=== PATIENT | female | born 1940 | race Caucasian/White ===

== ENCOUNTER 2019-08-15 23:14 | Emergency (ER) | payer MEDICARE, OTHER ==
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
[2019-08-16 00:38] VITALS: PULSE 82
[2019-08-16 01:15] VITALS: BP 161/79
--- NOTE | 2019-08-16 09:48 | XRAY ---
Indication: Pneumonia. Left rib fractures. Comparison: None Portable chest demonstrates mild left base infiltrate/atelectasis/effusion, tiny right effusion, and tiny peripheral right lung calcified granuloma. Heart is not enlarged. Bony thorax demonstrates osteopenia and nondisplaced left 6/7 rib fractures. Impression: 1. Left base infiltrate/atelectasis/effusion that may or may not be related to left rib fractures. No pneumothorax. 2. Incidental tiny right effusion and right lung calcified granuloma.
[2019-08-16 12:14] VITALS: O2SAT 88
== END 2019-08-16 01:30 | disposition home or self-care (01) ==
LOC: ED 23:14
DX: M25.512 Pain in left shoulder (principal); S22.42XS Multiple fractures of ribs, left side, sequela; V49.9XXD Car occupant (driver) (passenger) injured in unspecified traffic accident, subsequent encounter; I10 Essential (primary) hypertension; Z79.899 Other long term (current) drug therapy
CPT/HCPCS: 71045; 99284

== ENCOUNTER 2023-08-03 16:42 | Emergency (ER) | payer MEDICARE, OTHER ==
[2023-08-03 17:22] VITALS: BP 166/81; RESP 18; TEMP 98
--- NOTE | 2023-08-03 18:41 | ERPHSYRPT ---
- History of Present Illness Time Seen by Provider: 08/03/23 17:00 Source: patient Exam Limitations: no limitations Patient Subjective Stated Complaint: Patient fell just before 4pm today. 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 Patient did not hit her head. States she fell onto her buttocks. Now c/o pain in left hip. Triage Nursing Assessment: Patient brought back in w/c. Patient able to transfer self from chair to bed. Patient able to bend at knees per self to draw legs up and remove pants. Patient indicates she is only in pain when walking or with certain movements. No bruising noted to area of pain at this time. Physician History: Patient is a 82-year-old female presents to our ED for evaluation of pain to her left hip. 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 Patient now has pain at her left hip pain worse with weightbearing. Pain improved with rest. No associated BHT or LOC. The fall was not associated with any neuro cardiovascular symptomology. No chest pain or shortness of breath. No nausea vomiting or diaphoresis. Patient otherwise feels well. She voices no other complaints or concerns at this time. Portions of this note were created with voice recognition technology. There may be grammatical, spelling, punctuation or sound alike errors Method of Injury: fell Occurred: just prior to arrival (Patient fell at approximately 4 PM) Quality: intermittent Severity of Pain-Max: moderate Severity of Pain-Current: mild Lower Extremities Pain: hip: left Modifying Factors: Improves With: movement (Certain movements reproduce pain. Weightbearing increases pain) Associated Symptoms: none Allergies/Adverse Reactions: penicillin G Allergy (Mild, Verified 08/03/23 17:03) Rash swell at the inj. site. lubiprostone [From Amitiza] Adverse Reaction (Verified 08/03/23 17:03) Swelling of Feet Home Medications: Citalopram Hydrobromide 20 mg* [ceLEXa 20 MG] 1 tab PO DAILY 05/04/16 [History] diazePAM [Valium] 1 tab PO DAILY PRN PRN 05/04/16 [History] Mv-Min/Folic/K1/Lycopen/Lutein [Centrum Adults 50 Plus Minis] 1 tab PO DAILY 08/03/23 [History] Trazodone HCl 1 tab PO HS 08/03/23 [History] Hx Tetanus, Diphtheria Vaccination/Date Given: Yes (jul 2019) Hx Influenza Vaccination/Date Given: Yes Hx Pneumococcal Vaccination/Date Given: Yes Immunizations Up to Date: Yes Travel Risk - International Travel Have you traveled outside of the country in past 3 weeks: No - Coronavirus Screening Are you exhibiting any of the following symptoms?: No Close contact with a COVID-19 positive Pt in past 14-21 Days: No - Vaccine Status Have you recieved a Covid-19 vaccination: Yes Draw Tender: Posiq - Vaccination Dates Date of 2cond Vaccination (if applicable): ? - Review of Systems Constitutional: No Symptoms, No Fever, No Chills Eyes: No Symptoms Ears, Nose, & Throat: No Symptoms Respiratory: No Symptoms, No Cough, No Dyspnea Cardiac: No Symptoms, No Chest Pain, No Edema, No Syncope Abdominal/Gastrointestinal: No Symptoms, No Abdominal Pain, No Nausea, No Vomiting, No Diarrhea Genitourinary Symptoms: No Symptoms, No Dysuria Musculoskeletal: No Symptoms, No Back Pain, No Neck Pain Skin: No Symptoms, No Rash Neurological: No Symptoms, No Dizziness, No Focal Weakness, No Sensory Changes Psychological: No Symptoms Endocrine: No Symptoms Hematologic/Lymphatic: No Symptoms Immunological/Allergic: No Symptoms All Other Systems: Reviewed and Negative - Past Medical History Pertinent Past Medical History: Yes Neurological History: No Pertinent History, Migraines ENT History: Cataracts, Glaucoma Cardiac History: Hypertension Respiratory History: No Pertinent History Endocrine Medical History: No Pertinent History Musculoskeletal History: No Pertinent History GI Medical History: GERD History: No Pertinent History Psycho-Social History: Anxiety, Depression Female Reproductive Disorders: No Pertinent History Other Medical History: BP MED, GENERIC CELEXA, TAKES ACETOMENIPHINE OCCASSIONALLY BUT SHE DOESN'T TAKE ANYTHING CONSISTENTLY. - Past Surgical History Past Surgical History: Yes Neuro Surgical History: No Pertinent History Cardiac: Angioplasty Respiratory: No Pertinent History Gastrointestinal: No Pertinent History Genitourinary: No Pertinent History Musculoskeletal: Orthopedic Surgery, Other Female Surgical History: Hysterectomy Other Surgical History: R shoulder repair, septumplasty of nose, torn retina repair - Social History Smoking Status: Never smoker Exposure to second hand smoke: No Drug Use: none Patient Lives Alone: Yes - Nursing Vital Signs Nursing Vital Signs: Initial Vital Signs Temperature 98 F 08/03/23 16:42 Pulse Rate 86 08/03/23 16:42 Respiratory Rate 18 08/03/23 16:42 Blood Pressure 166/81 08/03/23 16:42 O2 Sat by Pulse Oximetry 94 L 08/03/23 16:42 Pain Scale Pain Intensity 8 - Physical Exam General Appearance: no apparent distress, alert Eyes, Ears, Nose, Throat Exam: normal ENT inspection, TMs normal, pharynx normal, moist mucous membranes Neck Exam: non-tender, supple Cardiovascular/Respiratory Exam: chest non-tender, normal breath sounds, regular rate/rhythm, no respiratory distress Gastrointestinal/Abdominal Exam: non-tender, guarding Back Exam: normal inspection, normal range of motion, No vertebral tenderness Hips Exam: left: non-tender, pain, other (The involved left lower extremity is neurovascular intact distally. Compartments are soft cap refill less than 2 seconds.) Legs Exam: bilateral leg: non-tender, normal inspection, normal range of motion, no evidence of injury Knees Exam: bilateral knee: non-tender, normal inspection, normal range of motion, no evidence of injury Ankle Exam: bilateral ankle: non-tender, normal inspection, normal range of motion, no evidence of injury Foot Exam: bilateral foot: non-tender, normal inspection, normal range of motion, no evidence of injury Neuro/Tendon Exam: normal sensation, normal motor functions Mental Status Exam: alert, oriented x 3, cooperative Skin Exam: normal color, warm, dry SpO2 Interpretation: normal SpO2: 94 O2 Delivery: Room Air - Course Nursing assessment & vital signs reviewed: Yes - CT Exams Lower Extremity CT Interpretation: Tele-radiologist Report (New incompletely visualized left hip prosthesis and fatty left inguinal hernia. Stable osteopenia, right hip DJD and moderate fecal stasis. No acute findings) Ordered Tests: Active Orders 24 hr Category Date Time Status PELVIS WITHOUT CONTRAST [CT] Stat Exams 08/03/23 17:12 Taken - Progress Progress: improved Progress Note: 82-year-old female presents to our ED for evaluation of left hip pain after a fall. Physical exam reveals some tenderness to motion of the left hip. Otherwise left lower extremity/involved lower extremities neurovascular intact distally. Compartments are soft. Cap refill less than [address] scan negative for fracture dislocation. Chronic findings observed. Patient received Toradol IM for pain control. We provided patient with a pickup walker for home. Patient will follow-up with her primary care doctor within 48 hours for reevaluation. She voices no other complaints or concerns at this time. Portions of this note were created with voice recognition technology. There may be grammatical, spelling, punctuation or sound alike errors Complexity of problems addressed is moderate acute complicated Complexity of data reviewed and analyzed is moderate. Test ordered test reviewed. Results analyzed and correlated clinically. Risk of complication and or risk of morbidity/mortality of patient management is moderate. Patient received a pickup walker for home. IM Toradol pain medication administered. Vital stable. Plan of care established for shared decision making. No social determinants of health present impede follow-up. Time spent to discharge patient approximately 15 minutes. Portions of this note were created with voice recognition technology. There may be grammatical, spelling, punctuation or sound alike errors 08/03/23 18:56 Counseled pt/family regarding: lab results, diagnosis, need for follow-up, rad results - Departure Departure Disposition: Home Clinical Impression: Fall, Left hip pain, Fatty left inguinal hernia, Osteopenia, Degenerative joint disease of right hip, Fecal stasis Condition: Stable Critical Care Time: No Referrals: SILKE WOOD MD [Primary Care Provider] - Follow up/PCP as directed Additional Instructions: Discharge/Care Plan JUAN MEADE was seen on 08/03/23 in the Emergency Room. The patient was counseled regarding Diagnosis,Lab results, Imaging studies, need for follow up and when to return to the Emergency Room. Prescriptions given: Discharge Note I have spoken with the patient and/or caregivers. I have explained the patient's condition, diagnosis and treatment plan based on the information available to me at this time. I have answered the patient's and/or caregiver's questions and addressed any concerns. The patient and/or caregivers have as good understanding of the patient's diagnosis, condition and treatment plan as can be expected at this point. The vital signs have been stable. The patient's condition is stable and appropriate for discharge from the emergency department. The patient will pursue further outpatient evaluation with the primary care physician or other designated or consulting physician as outlined in the discharge instructions. The patient and/or caregivers are agreeable to this plan of care and follow-up instructions have been explained in detail. The patient and/or caregivers have received these instruction. The patient/and or caregivers are aware that any significant change in condition or worsening of symptoms should prompt an immediate return to this or the closest emergency department or call 911.
[2023-08-03] MEDS: TORAdol 30 mg Injection IM ONE (19:00)
[2023-08-03] MEDS ORDERED: TORAdol 30 mg Injection ONE (19:06)
[2023-08-03 19:12] VITALS: PULSE 80; O2SAT 96
--- NOTE | 2023-08-04 08:36 | XRAY ---
Indication: Left hip pain following fall. Multiple contiguous axial images obtained through the pelvis with special attention to the osseous structures. Sagittal and coronal reformatted images obtained. Comparison: November 29, 2013 There has been interval left hip total arthroplasty with intact bipolar prosthesis. Osseous structures demineralized consistent with patient's age. No acute fracture, dislocation, or suspicious bony lesions. Progressive worsening moderate right hip degenerative arthropathy and mild lower lumbar degenerative spondylosis. Visualized noncontrasted soft tissues demonstrates new small fatty left inguinal hernia. Visualized pelvic contents again demonstrates moderate scattered colonic fecal debris and aortoiliac calcifications. No suspicious solid/cystic mass or abnormal fluid collection. Impression: 1. Negative acute fracture/dislocation. 2. Again incidental moderate colonic fecal stasis. 3. Chronic findings including intact left total hip arthroplasty, osteopenia, right hip degenerative arthropathy, lower lumbar degenerative spondylosis, fatty left inguinal hernia, and arteriosclerotic disease.
== END 2023-08-03 19:19 | disposition home or self-care (01) ==
LOC: ED 16:42
DX: M25.552 Pain in left hip (principal); W01.0XXA Fall on same level from slipping, tripping and stumbling without subsequent striking against object, initial encounter; K40.90 Unilateral inguinal hernia, without obstruction or gangrene, not specified as recurrent; M85.80 Other specified disorders of bone density and structure, unspecified site; M16.11 Unilateral primary osteoarthritis, right hip; K59.89 Other specified functional intestinal disorders; I10 Essential (primary) hypertension; Z79.899 Other long term (current) drug therapy
CPT/HCPCS: 72192; 96372; 99283; J1885

== ENCOUNTER 2023-08-06 09:48 | Emergency (ER) | payer MEDICARE, OTHER ==
[2023-08-06 10:23] VITALS: TEMP 97.6
[2023-08-06] MEDS ORDERED: TORAdol 30 mg Injection IV ONE (10:25)
[2023-08-06 10:41] LABS: Absolute Neutrophil Ct (ANC) 6.51 x10^3/uL (1.4-6.9); BASOPHIL % 0.8 % (0.0-0.4); Basophil (Absolute #) 0.07 x10^3/uL (0-0.4); Eosinophil % 7.9 % (0.00-5.0); Eosinophil (Absolute #) 0.72 x10^3/uL (0-0.5); Hematocrit 41.7 % (35-47); Hemoglobin 13.8 g/dL (12.0-16.0); IMMATURE GRAN # 0.04 x10^3u/L (0.00-0.03); IMMATURE GRAN % 0.4 % (0.00-0.4); Lymphocyte (Absolute #) 1.07 x10^3/uL (1.0-4.6); Lymphocytes % 11.7 % (24.0-44.0); Mean Cell Volume 95.4 fL (78-100); Mean Corpuscular Hemoglobin 31.6 pg (26-32); Mean Corpuscular Hgb Concent. 33.1 g/dL (32-36); Mean Platelet Volume 10.1 fL (7.5-11.0); Monocyte (Absolute #) 0.76 x10^3/uL (0.0-1.3); Monocytes % 8.3 % (0.0-12.0); Neutrophil % 70.9 % (36.0-66.0); Platelet Count 220 x10^3/uL (150-450); Red Blood Count 4.37 x10^6/uL (4.1-5.4); Red Cell Distribution Width 12.4 % (11.5-14.0); White Blood Count 9.2 x10^3/uL (4.0-10.5)
[2023-08-06] MEDS ORDERED: TORAdol 30 mg Injection ONE (10:47)
[2023-08-06 10:56] LABS: ALBUMIN 4.1 g/dL (3.5-5.0); ANION GAP 12.3 MEQ/L (5-15); BILIRUBIN,TOTAL 0.9 mg/dL (0.2-1.3); Calcium 9.2 mg/dL (8.4-10.2); Creatinine 1 0.73 mg/dL (0.52-1.04); EST GLOMERULAR FILTRATION RATE 82.6 ML/MIN; Potassium 3.9 mmol/L (3.5-5.1); Total Protein 7.3 g/dL (6.3-8.2)
--- NOTE | 2023-08-06 11:30 | ERPHSYRPT ---
- History of Present Illness Historian: patient Exam Limitations: no limitations Patient Subjective Stated Complaint: pt states that she was here a couple days ago for a fall to the left side and she had scans done and she stated that Dr. Diego wasn't listening to her that she was hurting in the left lower quadrant low in the pubis, states that she has a hernia and the pain is excrutiating Triage Nursing Assessment: Pt was brought to the ER room via a wheelchair, vitals wnl, rates pain as 8.5/10, pulses normal, skin n/w/d, bowel sounds heard in all 4 quadrants, very verbal and upset Physician History: Patient is an 82-year-old female who complains of left lower quadrant pain x3 days since she fell in charge. Patient was seen in the ER on the day she fell with a negative work-up. Pain is 8.5 out of 10 and worse with movement . She attributes the pain to a hernia which she has had in the past. Patient denies nausea, vomiting, diarrhea, melena, hematochezia, dysuria, and hematuria. She has not taken any pain meds at home. CT of pelvis was done on on 08/03 which was negative for fracture, demonstrating only fecal stasis and left hip prosthesis. She has no other complaints at this time. Timing/Duration: other (08/03/2023) Activities at Onset: other (Fall) Quality: other (Muscle strain) Abdominal Pain Onset Location: LLQ Pain Radiation: no radiation Severity of Pain-Max: severe Severity of Pain-Current: severe Modifying Factors: Improves With: movement (Pain worse with movement) Associated Symptoms: denies symptoms Previous symptoms: no prior history Allergies/Adverse Reactions: penicillin G Allergy (Mild, Verified 08/06/23 10:23) Rash swell at the inj. site. lubiprostone [From Amitiza] Adverse Reaction (Verified 08/06/23 10:23) Swelling of Feet Home Medications: Citalopram Hydrobromide 20 mg* [ceLEXa 20 MG] 1 tab PO DAILY 05/04/16 [History] diazePAM [Valium] 1 tab PO DAILY PRN PRN 05/04/16 [History] Mv-Min/Folic/K1/Lycopen/Lutein [Centrum Adults 50 Plus Minis] 1 tab PO DAILY 08/03/23 [History] Trazodone HCl 1 tab PO HS 08/03/23 [History] Hx Tetanus, Diphtheria Vaccination/Date Given: Yes (jul 2019) Hx Influenza Vaccination/Date Given: Yes Hx Pneumococcal Vaccination/Date Given: Yes Travel Risk - International Travel Have you traveled outside of the country in past 3 weeks: No - Coronavirus Screening Are you exhibiting any of the following symptoms?: No Close contact with a COVID-19 positive Pt in past 14-21 Days: No - Vaccine Status Have you recieved a Covid-19 vaccination: Yes Temperer: Co-Work - Vaccination Dates Date of 2cond Vaccination (if applicable): ? - Review of Systems Constitutional: No Symptoms Eyes: No Symptoms Ears, Nose, & Throat: No Symptoms Respiratory: No Symptoms Cardiac: No Symptoms Abdominal/Gastrointestinal: No Symptoms, Abdominal Pain Genitourinary Symptoms: No Symptoms Musculoskeletal: No Symptoms Skin: No Symptoms Neurological: No Symptoms Psychological: No Symptoms Endocrine: No Symptoms Hematologic/Lymphatic: No Symptoms Immunological/Allergic: No Symptoms - Past Medical History Pertinent Past Medical History: Yes Neurological History: No Pertinent History, Migraines ENT History: Cataracts, Glaucoma Cardiac History: Hypertension Respiratory History: No Pertinent History Endocrine Medical History: No Pertinent History Musculoskeletal History: No Pertinent History GI Medical History: GERD History: No Pertinent History Psycho-Social History: Anxiety, Depression Female Reproductive Disorders: No Pertinent History Other Medical History: . - Past Surgical History Past Surgical History: Yes Neuro Surgical History: No Pertinent History Cardiac: Angioplasty Respiratory: No Pertinent History Gastrointestinal: No Pertinent History Genitourinary: No Pertinent History Musculoskeletal: Orthopedic Surgery, Other Female Surgical History: Hysterectomy Other Surgical History: R shoulder repair, septumplasty of nose, torn retina repair - Social History Smoking Status: Never smoker Exposure to second hand smoke: No Drug Use: none Patient Lives Alone: Yes - Nursing Vital Signs Nursing Vital Signs: Initial Vital Signs Temperature 97.6 F 08/06/23 10:08 Pulse Rate 92 H 08/06/23 10:08 Blood Pressure 134/68 08/06/23 10:08 O2 Sat by Pulse Oximetry 94 L 08/06/23 10:08 Pain Scale Pain Intensity 8 Normal per age. - Physical Exam General Appearance: no apparent distress (Patient in pain but no apparent distress) Eye Exam: PERRL/EOMI, eyes nml inspection Ears, Nose, Throat Exam: normal ENT inspection, TMs normal, pharynx normal, moist mucous membranes Neck Exam: normal inspection (C-spine nontender to palpation) Respiratory Exam: normal breath sounds (Clear to auscultation bilaterally) Cardiovascular Exam: regular rate/rhythm (Rate and rhythm without heaves, gallops, murmurs, rubs.) Gastrointestinal/Abdomen Exam: soft (Good bowel sounds all 4 quadrants/moderate left lower quadrant tenderness palpation/no guarding or rebound) Back Exam: normal inspection (No T or L-spine tenderness to palpation noted) Extremity Exam: normal inspection (No upper or lower extremity tenderness palpation or deformity.) Neurologic Exam: alert, oriented x 3, cooperative, building maintenance technician II-XII nml as tested, normal mood/affect, nml cerebellar function, nml station & gait, sensation nml Skin Exam: normal color, warm, dry Lymphatic Exam: No adenopathy SpO2 Interpretation: normal SpO2: 95 O2 Delivery: Room Air - Course Nursing assessment & vital signs reviewed: Yes - CT Exams Abdomen/Pelvis CT Interpretation: Discussed w/radiologist (CT abdomen pelvis with IV contrast demonstrates fecal stasis with rectal impaction/left hip prosthesis noted/no acute osseous injuries) Ordered Tests: Active Orders 24 hr Category Date Time Status IV Insertion STAT Care 08/06/23 11:12 Completed ABDOMEN AND PELVIS W CONTRAST [CT] Stat Exams 08/06/23 10:24 Completed AMYLASE Stat Lab 08/06/23 10:35 Completed CBC W DIFF Stat Lab 08/06/23 10:35 Completed CMP Stat Lab 08/06/23 10:35 Completed LIPASE Stat Lab 08/06/23 10:35 Completed Medication Summary Discontinued Medications Generic Name Dose Route Start Last Admin Trade Name Ayush PRN Reason Stop Dose Admin Ketorolac Tromethamine 15 mg 08/06/23 10:25 08/06/23 10:48 Ketorolac Tromethamine 30 Mg/Ml Inj IV 08/06/23 10:26 15 mg STAT ONE Administration Ketorolac Tromethamine Confirm 08/06/23 10:47 Ketorolac Tromethamine 30 Mg/Ml Inj Administered 08/06/23 10:48 Dose 30 mg .ROUTE .STK-MED ONE Lab/Rad Data: Laboratory Result Diagrams 08/06/23 10:35 08/06/23 10:35 Laboratory Results 11/17/23 11/17/23 Range/Units 10:35 10:35 WBC 9.2 (4.0-10.5) x10^3/uL RBC 4.37 (4.1-5.4) x10^6/uL Hgb 13.8 (12.0-16.0) g/dL Hct 41.7 (35-47) % MCV 95.4 (78-100) fL MCH 31.6 (26-32) pg MCHC 33.1 (32-36) g/dL RDW 12.4 (11.5-14.0) % Plt Count 220 (150-450) x10^3/uL MPV 10.1 (7.5-11.0) fL Gran % 70.9 H (36.0-66.0) % Immature Gran % (Auto) 0.4 (0.00-0.4) % Nucleat RBC Rel Count 0.0 (0.00-0.1) % Eos # (Auto) 0.72 H (0-0.5) x10^3/uL Immature Gran # (Auto) 0.04 H (0.00-0.03) x10^3u/L Absolute Lymphs (auto) 1.07 (1.0-4.6) x10^3/uL Absolute Monos (auto) 0.76 (0.0-1.3) x10^3/uL Absolute Nucleated RBC 0.00 (0.00-0.01) x10^3u/L Lymphocytes % 11.7 L (24.0-44.0) % Monocytes % 8.3 (0.0-12.0) % Eosinophils % 7.9 H (0.00-5.0) % Basophils % 0.8 (0.0-0.4) % Absolute Granulocytes 6.51 (1.4-6.9) x10^3/uL Basophils # 0.07 (0-0.4) x10^3/uL Sodium 137 (137-145) mmol/L Potassium 3.9 (3.5-5.1) mmol/L Chloride 98 (98-107) mmol/L Carbon Dioxide 30 (22-30) mmol/L Anion Gap 12.3 (5-15) MEQ/L BUN 20 H (7-17) mg/dL Creatinine 0.73 (0.52-1.04) mg/dL Estimated GFR 82.6 ML/MIN Glucose 112 H (74-106) mg/dL Calcium 9.2 (8.4-10.2) mg/dL Total Bilirubin 0.90 (0.2-1.3) mg/dL AST 25 (14-36) U/L ALT 20 (0-35) U/L Alkaline Phosphatase 56 (38-126) U/L Serum Total Protein 7.3 (6.3-8.2) g/dL Albumin 4.1 (3.5-5.0) g/dL Amylase 72 (30-110) U/L Lipase 63 (23-300) U/L - Progress Progress Note: 08/06/23 17:58 Nursing note and vital signs reviewed. No food or housing insecurities noted. All lab results reviewed and shared with patient. CT results of abdomen pelvis with IV contrast reviewed and shared with patient. There is no traumatic injury in the abdomen or pelvis per CT result. Patient does have constipation which she states is chronic and she treats at home. 08/06/23 17:59 Patient given 15 g IV Toradol with mild relief of pain in ER. 08/06/23 17:59 Prescription for [place] sent electronically to patient's pharmacy. Patient advised to take a stool softener with a pain meds. Patient also advised to use enemas for her constipation and mild rectal impaction. Counseled pt/family regarding: lab results, diagnosis, need for follow-up, rad results Medical Desision Making - Diagnostic Testing Diagnostic test were ordered, analyzed, and reviewed by me: Yes Radiological Interpretation: Reviewed by me - Risk of complications The pt has a mod risk of morbidity or mortality based on: Need for prescription drug management - Departure Departure Disposition: Home Clinical Impression: Abdominal pain, Constipation Condition: Stable Critical Care Time: No Referrals: SILKE WOOD MD [Primary Care Provider] - Follow up/PCP as directed Instructions: Abdominal pain Additional Instructions: Pain meds as needed. Please use a stool softener with your pain medication. Would recommend enemas for constipation. Activity as tolerated. Rest and heat as needed. With your family MD early next week for continued pain. Return to ER for worsening of pain or temperature greater 100.5. Prescriptions: Hydrocodone/Acetaminophen [Hydrocodone-Acetamin 5-325 mg] 1 each PO Q6HPRN PRN #6 tablet MDD 4 tabs PRN Reason: Pain
--- NOTE | 2023-08-06 12:14 | XRAY ---
Indication: Left lower quadrant/pelvic pain. Multiple contiguous images obtained through the abdomen and pelvis using 80 cc Isovue 370 contrast. Comparison: CT pelvis August 03, 2023. Lung bases demonstrates minimal subsegmental atelectasis/scarring. No infiltrate or effusion. Heart not enlarged. Again beam artifact from left hip prosthesis. Noncontrasted stomach and bowel loops nonobstructed. There remains moderate diffuse scattered colonic fecal debris with mild rectal impaction. Both kidneys enhance and excrete with incidental 7 mm right mid renal cyst. No free fluid/air. Remaining liver, gallbladder, pancreas, spleen, adrenal glands, kidneys, ureters, and bladder are unremarkable. Again mild aortoiliac calcifications. No AAA or pathologic retroperitoneal lymphadenopathy. Osseous structures intact again with osteopenia, lower lumbar degenerative spondylosis, and moderate right hip degenerative arthropathy. Stable small fatty left inguinal hernia. Impression: No change compared to ER exam 3 days ago. Again moderate diffuse fecal stasis with rectal impaction, beam artifact from intact left hip arthroplasty, arteriosclerotic disease, left renal cyst, fatty left inguinal hernia, and chronic bony findings. No acute findings.
[2023-08-06 12:38] VITALS: BP 127/77; PULSE 84; RESP 18
[2023-08-06 18:01] VITALS: O2SAT 95
== END 2023-08-06 12:54 | disposition home or self-care (01) ==
LOC: ED 09:48
DX: R10.32 Left lower quadrant pain (principal); K59.00 Constipation, unspecified; I10 Essential (primary) hypertension; Z79.891 Long term (current) use of opiate analgesic; Z79.899 Other long term (current) drug therapy
CPT/HCPCS: 36000; 36415; 74177; 80053; 82150; 83690; 85025; 96374; 99284; J1885